=== PATIENT | female | born 1995 | race Caucasian/White ===

== ENCOUNTER 2019-08-11 02:35 | Emergency (ER) | payer OTHER ==
[~2019-08-11] VITALS: Ht 167.6 cm; Wt 94.8 kg
[2019-08-11] MEDS ORDERED: VENL75TA PO (02:58)
--- NOTE | 2019-08-11 03:04 | NUR ---
THIS IS A 23 YO FEMALE COMING IN FOR VAGINAL BLEEDING X2 DAYS WITH SUPRAPUBIC CRAMPING RADIATING TO LEFT LOWER QUADRANT. PATIENT STATES "IT STARTED OFF BRIGHT RED NOW IT'S PINK-JESSICA". WHEN ASKED IF CHANCE OF PATIENT STATES "I MEAN WE HAVE SEX AND I DON'T USE ANY CONTROL". PATIENT HAS NEVER BEEN BEFORE, LMP WAS END OF JUNE/BEGINNING OF JULY. DENIES LIGHTHEADED/DIZZINESS. DENIES SOB/CHEST PAIN. DENIES ABD PAIN/N/V/D. PATIENT DOES C/O PAIN WITH URINATION. SPO2 AND BP MONITORING IN PLACE, VSS, NAD, CALL LIGHT IN REACH
[2019-08-11 03:25] LABS: BASOPHILS # (AUTO) 0.03 x10^3/uL (0-0.1); BASOPHILS % (AUTO) 0 % (0-1); EOSINOPHILS # (AUTO) 0.09 x10^3/uL (0-0.4); EOSINOPHILS % (AUTO) 1 % (1-7); LYMPHOCYTES # (AUTO) 2.45 x10^3/uL (1-3.4); LYMPHOCYTES % (AUTO) 35 % (22-44); MD NO; MEAN CORPUSCULAR HGB CONC 33.4 g/dL (32.4-35.8); MEAN CORPUSCULAR VOLUME 89.7 fL (80-100); MEAN PLATELET VOLUME 7.8 fL (7.4-10.4); MONOCYTES # (AUTO) 0.54 x10^3/uL (0.2-0.8); MONOCYTES % (AUTO) 8 % (2-9); NEUTROPHILS # (AUTO) 3.97 x10^3/uL (1.8-6.8); NEUTROPHILS % (AUTO) 56 % (42-75); PLATELET COUNT 401 x10^3/uL (130-400); RED BLOOD COUNT 4.48 x10^6/uL (3.82-5.3); RED CELL DISTRIBUTION WIDTH 13.7 % (9.6-15.2)
--- NOTE | 2019-08-11 03:30 | NUR ---
PATIENT TO ULTRASOUND
--- NOTE | 2019-08-11 03:34 | NUR ---
UA COLLECTED AND SENT
[2019-08-11 03:36] LABS: ALBUMIN 3.7 g/dL (3.4-5.0); ANION GAP 8 mmol/L (5-15); CALCIUM 8.5 mg/dL (8.5-10.1); CHLORIDE 107 mmol/L (98-107); CREATININE 0.61 mg/dL (0.55-1.02)
[2019-08-11 03:44] LABS: HCG UR SG 1.014 (1.003-1.030); MICROSCOPIC AUTO
[2019-08-11 03:46] LABS: CULTURE INDICATED? NO
[2019-08-11 04:23] VITALS: BP 121/89
--- NOTE | 2019-08-11 04:34 | NUR ---
Patient given discharge instructions and they have confirmed that they understand the instructions. Patient ambulatory with steady gait.
== END 2019-08-11 04:46 | disposition home or self-care (01) ==
LOC: ED 04:30
DX: N93.8 Other specified abnormal uterine and vaginal bleeding (principal); R10.30 Lower abdominal pain, unspecified
CPT/HCPCS: 36415; 76830; 80048; 81001; 81025; 82040; 85025; 99284